=== PATIENT | female | born 1990 | race Caucasian/White ===

== ENCOUNTER 2021-11-14 05:33 | Inpatient (IN) | payer OTHER ==
[~2021-11-14] VITALS: Ht 165.1 cm; Wt 88.9 kg
--- NOTE | ~2021-11-14 | OR ---
[facility] [address], [place] [address] Draft DATE OF OPERATION: 11/14/2021 SURGEON: Whit Sommer DO PREOPERATIVE DIAGNOSES: 1. Persistent breech presentation. 2. Non-reassuring heart tracing. 3. Placental abruption. 4. macrosomia. PROCEDURES PERFORMED: 1. Attempted external cephalic version. 2. Primary low transverse delivery. ANESTHESIA: Spinal. HISTOLOGIC TECHNICIAN: Charo Odonnell M.D. ESTIMATED BLOOD LOSS: 900 mL. FINDINGS: Delivery of viable female , 10 pounds 3 ounces with Apgars of 7 and 9 in the layla breech presentation with nuchal cord x1 and partial placental abruption. Normal tubes and ovaries as well as uterus. COMPLICATIONS: None. DRAINS: Akins to gravity. INDICATIONS: Mrs. Gregory is a very pleasant 31-year-old, G1, P0, female with intrauterine at 39 weeks and one day gestation, who presented to [facility] for attempted external cephalic version. Risks, benefits, and alternatives were discussed in detail with the patient. Risks include, but are not limited to, infection, abruption, or failed version that require delivery. The patient understands and wishes to proceed with the PATIENT NAME: SHAN GREGORY OPERATIVE REPORT DATE OF : [birth year] REPORT #: [id number] PHYSICIAN: WHIT SOMMER DO PCP: ADDLEMAN,AVE K PAC REPORT IS CONFIDENTIAL AND NOT TO BE RELEASED WITHOUT AUTHORIZATION [facility] [address], [place] [address] Draft procedure. DESCRIPTION OF PROCEDURE: The patient was taken to the operating room, where time-out was performed to confirm correct patient and correct procedure. Spinal anesthetic was adequately established. The patient was given a dose of subcu terbutaline and heart tracing was reassuring. Ultrasound demonstrated persistent breech presentation. The patient was then prepped for external cephalic version. The buttocks were attempted to be elevated from the maternal pelvis and a forward roll was initiated. The vertex did not easily rotate. A backward roll was attempted, but no positional movement was appreciated. heart monitor was then applied that demonstrated bradycardia and decision was made to proceed emergently with primary low-transverse delivery. The patient was quickly prepped in the supine position with a bump on the right hip. Ancef 2 g were given preoperatively and Akins catheter was inserted. Pfannenstiel skin incision was made 2 cm above the pubic symphysis and carried down to the fascia in the midline. Fascia was nicked and fascial incision was extended bilaterally using curved Bhagat scissors. The fascia was grasped with Saul's, elevated, and the underlying rectus dissected off sharply and bluntly. The rectus was divided in the midline bluntly and the peritoneum was entered bluntly. Peritoneal incision was extended bilaterally using blunt dissection and the lower uterine segment was identified. An Arturo self retractor was placed and hysterotomy was performed in the lower uterine segment using a surgical scalpel. Bloody amniotic fluid was noted, and hysterotomy was extended bilaterally using blunt dissection. The buttocks were grasped via the ileum and delivered with the assistance of fundal pressure. The was delivered to the axilla and the arm was swept medially and delivered. The baby was rotated 180 degrees and now anterior arm was swept medially and delivered. The was rotated occiput anterior. The head was flexed and delivered with the assistance of fundal pressure. Nuchal cord x1 was identified and reduced. The was vigorous and cried. The cord was doubly clamped and cut and the handed to the waiting pediatric team for further care. Cord blood was obtained for routine analysis. The placenta was then expressed intact with a centrally inserted three-vessel cord with a small abruption appreciated. The uterine cavity was cleared of any remaining products of conception or clot. Hysterotomy was repaired in two layers using 0-Monocryl. The first being a running locked suture and the second being an imbricated suture in a vertical manner. A small amount of oozing was noted and this was made hemostatic with [id number] suture and judicious use of Bovie electrocautery. The pelvis was irrigated and found to be hemostatic. Normal uterus, tubes, and ovaries were appreciated. The Arturo self retractor was removed and again hemostasis of the hysterotomy was appreciated. The peritoneum was reapproximated using 2-0 Vicryl in a running nonlocked manner. The rectus muscle was made hemostatic using judicious use of Bovie electrocautery and then it was plicated in the midline using three interrupted sutures of 0-Vicryl. The fascia was then reapproximated using 0-Vicryl in a running PATIENT NAME: SHAN GREGORY OPERATIVE REPORT DATE OF : [birth year] REPORT #: [id number] PHYSICIAN: WHIT SOMMER DO PCP: AVE ARRIAGA PAC REPORT IS CONFIDENTIAL AND NOT TO BE RELEASED WITHOUT AUTHORIZATION [address] [address] Draft nonlocked manner. Subcu was reapproximated using 3-0 Vicryl in a running nonlocked manner after assuring hemostasis with the Bovie electrocautery. Skin was reapproximated with surgical jarvis. The uterus was Crede'd for scant amount of blood. The patient was taken to the PACU in good and stable condition. Dr. Odonnell was present and participated in all portions of the procedure. Sponge, needle, and instrument count was correct x2 at the end of the procedure. Whit Sommer DO JParishW/MARIA DE JESUS /[id number] Copies: ~ PATIENT NAME: SHAN GREGORY OPERATIVE REPORT DATE OF : [birth year] REPORT #: [id number] PHYSICIAN: WHIT SOMMER DO PCP: AVE ARRIAGA PAC REPORT IS CONFIDENTIAL AND NOT TO BE RELEASED WITHOUT AUTHORIZATION
[2021-11-14] MEDS ORDERED: EXPECTA PRENAT1 EACH PO (06:52)
--- NOTE | 2021-11-16 13:48 | PR ---
[facility] [address] [facility] [place] [place] [address] Signed PP Progress Notes Datetime Report Generated by CPN: 11/16/2021 13:48 SUBJECTIVE: [id number] Pain: Within Normal Limits Nausea/Vomiting: Denies Flatus: Yes Bowel Movement: No Vital Signs: [id number] Vital Signs: Reviewed; Within Normal Limits EXAM: Met Cardiovascular: Normal Respiratory: Normal Abdomen/Uterus: Normal Lochia: Normal Vulva/Perineum: Not Done Breasts: Not Done CVA Tenderness: Normal Extremities: Normal Incision: Normal Progress: Normal Exam Comments: Fundus firm U-2 nontender. Incision healing well IMPRESSION/PLAN/PROCEDURES: [id number] Impression: Normal Progression Plan: Discharge Progress Notes: Pt seen and examined. Doing well. Ambulating, voiding, and tolerating full diet. Pain and lochia minimal. well. No fevers/chills or other concerns. Desires d/c home today. [place] out tomorrow in office. No questions. Reviewed d/c instructions in detail. Unsure of contraceptive plans. Signing Physician: Whit Sommer DO Copies: ~ *Electronically Signed* 11/16/21 7731 WHIT SOMMER DO PATIENT NAME: SHAN WILKINS PROGRESS NOTE DATE OF : [birth year] PHYSICIAN: WHIT SOMMER DO RPT #: [id number] REPORT IS CONFIDENTIAL AND NOT TO BE RELEASED WITHOUT AUTHORIZATION
== END 2021-11-16 14:35 | disposition home or self-care (01) | DRG 786 ==
LOC: FBCO 05:33 → FBC 07:11 → DS 07:30 → FBCO 11:30 → FBC 11-16 14:35
PROVIDERS: ADMIT Obstetrics & Gynecology; ATTEND Obstetrics & Gynecology
PROC: 10D00Z1 Extraction of Products of Conception, Low, Open Approach (ICD-10-PCS; principal; 2021-11-14 07:30)
DX: O64.1XX0 Obstructed labor due to breech presentation, not applicable or unspecified (principal); O45.93 Premature separation of placenta, unspecified, third trimester; Z37.0 Single live birth; O36.63X0 Maternal care for excessive fetal growth, third trimester, not applicable or unspecified; O76 Abnormality in fetal heart rate and rhythm complicating labor and delivery; O69.1XX0 Labor and delivery complicated by cord around neck, with compression, not applicable or unspecified; Z3A.39 39 weeks gestation of pregnancy; Z88.2 Allergy status to sulfonamides; Z88.5 Allergy status to narcotic agent; Z86.16 Personal history of COVID-19; Z79.899 Other long term (current) drug therapy
CPT/HCPCS: 01961; 36415; 85027; 86850; 86900; 86901; A9270; J0330; J0461; J0690; J1650; J1885; J2001; J2274; J2405; J2550; J2590; J2765; J3105; J7121